=== PATIENT | male | born 1970 | race Hispanic/Latino ===

== ENCOUNTER 2020-05-29 00:42 | Outpatient (CLI) | payer OTHER, SELFPAY ==
[2020-05-29 18:05] LABS: SARS-CoV-2 RNA PCR Negative
== END 2020-05-29 00:43 | disposition home or self-care (01) ==
LOC: ANHCOVIDDT 00:42
PROVIDERS: PCP Family Medicine; Visit Provider Internal Medicine Gastroenterology
DX: Z01.812 Encounter for preprocedural laboratory examination (principal); Z20.828 Contact with and (suspected) exposure to other viral communicable diseases
CPT/HCPCS: 87635; C9803; U0003

== ENCOUNTER 2020-06-01 00:31 | Day surgery (SDC) | payer OTHER, SELFPAY ==
[2020-05-26 11:14] VITALS: BMI 35.2
[2020-06-01] MEDS: LACTATED RINGERS 1,000 ML 150 ML IV CONT (08:06)
[2020-06-01 08:07] VITALS: BP 120/69; PULSE 77; RESP 12; TEMP 36.5; O2SAT 98; BMI 33.4
--- NOTE | 2020-06-01 08:46 | WPDANESEPPF ---
Anes - Initial Pre Proc Eval Procedure: Operation Date: 06/01/20 09:15 Proposed Procedures p Screening Colonoscopy - Zay Salas MD Date/Time: 06/01/20 08:46 Surgeon: Zay Salas MD Pre Op Diagnosis: neoplasm screening Patient Data Age: 49 Gender: M Height: 5 ft 5 in Weight: 91.2 kg Last Vital Signs Temp 97.7 F 06/01/20 08:07 Pulse 77 06/01/20 08:07 Resp 12 06/01/20 08:07 BP 120/69 06/01/20 08:07 Pulse Ox 98 06/01/20 08:07 Allergies Allergy/AdvReac Type Severity Reaction Status Date / Time No Known Allergies Allergy Verified 06/01/20 08:06 Home Medications Medication Instructions Recorded Confirmed Type amlodipine 2.5 mg tablet 2.5 mg PO DAILY #30 tablet 04/14/20 05/26/20 Rx diclofenac sodium 50 mg 50 mg PO BID #60 tablet 04/14/20 05/26/20 Rx tablet,delayed release peg 3350-electrolytes 236 240 ml PO Q15M #4000 ml 05/31/20 Rx gram-22.74 gram-6.74 gram-5.86 gram solution Patient hx anesthesia problems: none Family hx anesthesia problems: none PMFSH Past Medical History Medical History (Updated 04/30/20 @ 09:56 by Ximena Dumont PA-C) SMILEY (nonalcoholic steatohepatitis) Rheumatoid arthritis involving multiple sites with positive rheumatoid factor Rheumatoid factor positive Family History Family History (Updated 07/15/19 @ 09:05 by Sepideh Hyde [facility]) Father Heart disease Social History Social History (Updated 04/28/20 @ 16:11 by Brandi Lawson) Smoking packs per day: 1.5 Smoking cigarettes per day: 30.0 Years smoked: 2 Smoking pack-years: 3.00 Smoking status: Former smoker Tobacco type: cigarettes Alcohol intake: current Drinks per week: 2 Substance use: never Substance use type: does not use Gender identity (if verbalized by the patient): Male Spiritual care concerns: No Anes - Eval Final PreProcedure Day of Procedure 06/01/20 08:46 Patient weight: overweight Heart: regular rate and rhythm Lungs: clear to auscultation Airway: Mallampati scale class II Neurological: alert and oriented Last oral intake: >/= 8 hours ASA classification: II Emergent: no Anesthetic plan: proceed Anesthesia type and monitoring: general GIVS and standard monitoring Informed Consent: The patient's anesthetic plan and its attendant risks and benefits were discussed with the patient/family/POA. Questions were solicited and answers provided to the satisfaction of the patient/family/POA.
--- NOTE | 2020-06-01 09:06 | PM.HPGS ---
History of Present Illness History of Present Illness Consent: Risks, benefits, and alternatives have been discussed and questions answered. Patient agrees to proceed with procedure. Chief complaint: neoplasm screening Narrative: Palmer Garcia is a 49 year old male here for first screening colonoscopy Review of Systems Constitutional: Constitutional: Denies headache(s) and Denies weakness Eyes: Eyes: Denies blurry vision ENT: Reports Normal hearing present, Denies headache(s) and Denies neck pain Cardiovascular: Cardiovascular: Denies chest pain and Denies dyspnea Respiratory: Respiratory: Denies dyspnea Gastrointestinal: Gastrointestinal: Reports no additional gastrointestinal complaints Genitourinary: Genitourinary: Denies dysuria Musculoskeletal: Musculoskeletal: Denies neck pain Integumentary/Breasts: Skin/Breast: Denies dry skin Neurologic: Reports Normal hearing present, Denies headache(s) and Denies weakness Psychiatric: Psychiatric: Denies anxiety Endocrine: Endocrine: Denies change in body appearance Hematologic/Lymphatic: Hematologic/Lymphatic: Denies easy bleeding Allergic/Immunologic: Allergic/Immunologic: Denies urticaria [facility] Past Medical History Medical History (Updated 04/30/20 @ 09:56 by Ximena Dumont PA-C) SMILEY (nonalcoholic steatohepatitis) Rheumatoid arthritis involving multiple sites with positive rheumatoid factor Rheumatoid factor positive Family History Family History (Updated 07/15/19 @ 09:05 by Sepideh Hyde [facility]) Father Heart disease Social History Social History (Updated 04/28/20 @ 16:11 by Brandi Lawson) Smoking packs per day: 1.5 Smoking cigarettes per day: 30.0 Years smoked: 2 Smoking pack-years: 3.00 Smoking status: Former smoker Tobacco type: cigarettes Alcohol intake: current Drinks per week: 2 Substance use: never Substance use type: does not use Gender identity (if verbalized by the patient): Male Spiritual care concerns: No Meds Home Medications and Allergies Home Medications Medication Instructions Recorded Confirmed Type amlodipine 2.5 mg tablet 2.5 mg PO DAILY #30 tablet 04/14/20 05/26/20 Rx diclofenac sodium 50 mg 50 mg PO BID #60 tablet 04/14/20 05/26/20 Rx tablet,delayed release peg 3350-electrolytes 236 240 ml PO Q15M #4000 ml 05/31/20 Rx gram-22.74 gram-6.74 gram-5.86 gram solution Allergies Allergy/AdvReac Type Severity Reaction Status Date / Time No Known Allergies Allergy Verified 06/01/20 08:06 Vital Signs Vital Signs - 24 hr 06/01/20 08:07 Temperature 97.7 F Pulse Rate 77 Respiratory Rate 12 Blood Pressure 120/69 Pulse Oximetry 98 Exam Const: General: comfortable and no acute distress HENMT: General nose exam: Normal nares present Eyes: General: appearance normal, both eyes and all related structures Neck: Neck: no JVD Resp: Auscultation: clear to auscultation bilaterally Cardio: Rate: regular rate Rhythm: regular rhythm GI: Inspection: non-distended GI Palp: Yes Soft to palpation Skin: General skin exam: normal color Neuro: General: gait normal Speech: normal speech Extrem: General: normal to inspection Psych: Mental Status: mental status grossly normal Assessment and Plan Assessment and plan (1) Screening for colon cancer: Code(s): Z12.11 - Encounter for screening for malignant neoplasm of colon Status: Acute Assessment and Plan: will proceed with colonoscopy
[2020-06-01 09:26] VITALS: BP 86/62; PULSE 66; RESP 19; O2SAT 98
[2020-06-01 09:36] VITALS: BP 112/71; PULSE 61; RESP 17; O2SAT 99
[2020-06-01 09:46] VITALS: BP 116/69; PULSE 64; RESP 19; O2SAT 99
== END 2020-06-01 09:58 | disposition home or self-care (01) ==
PROVIDERS: PCP Family Medicine; Visit Provider Internal Medicine Gastroenterology
PROC: 0DJD8ZZ Inspection of Lower Intestinal Tract, Via Natural or Artificial Opening Endoscopic (ICD-10-PCS; CPT 45378; principal; 2020-06-01 09:15)
DX: Z12.11 Encounter for screening for malignant neoplasm of colon (principal); K76.0 Fatty (change of) liver, not elsewhere classified; M06.9 Rheumatoid arthritis, unspecified; Z87.891 Personal history of nicotine dependence
CPT/HCPCS: 45378; J2704; J7120

== ENCOUNTER 2020-06-14 16:14 | Outpatient (NON) | payer OTHER, SELFPAY ==
[2020-06-14 18:42] LABS: Crystals Synovial Fluid None Seen (None Seen)
[2020-06-14 19:24] LABS: Appearance Synovial Fluid Hazy (Clear); Color Synovial Fluid Yellow (Colorless); Source Synovial Fluid Synovial fluid
[2020-06-14 19:25] LABS: Lymphocytes Synovial Fluid 73 %; Macrophages Synovial Fluid 7 %; Monocytes Synovial Fluid 20 %; Nucleated Cell Synovial Fluid 124 /uL (0-200); RBC Synovial Fluid 2082 /uL (0-0)
== END 2020-06-14 16:15 ==
PROVIDERS: PCP Family Medicine; Visit Provider Orthopaedic Surgery
DX: M25.461 Effusion, right knee (principal)
CPT/HCPCS: 36415; 82945; 84157; 86430; 86431; 87205; 88108; 89051; 89060

== ENCOUNTER 2021-07-21 14:37 | Emergency (ER) | payer OTHER, SELFPAY ==
--- NOTE | ~2021-07-21 | XR_ITS ---
EXAMINATION: XR chest 1V portable DATE: 07/21/2021 15:36 INDICATION: Cough and shortness of breath. TECHNIQUE: A single frontal view of the chest was obtained. COMPARISON: CT abdomen and pelvis 12/18/2018 FINDINGS: The chest demonstrates clear lungs without pneumonia, pleural effusion, or pneumothorax. Th e heart size is normal. IMPRESSION: 1. No acute cardiopulmonary disease. Reviewed, dictated and finalized at location A. R INCIDENT HANDLER
--- NOTE | 2021-07-21 14:39 | ECG_ITS ---
Measurements Intervals [place] Rate: 79 P: -3 NV: 136 QRS: 17 QRSD: 89 T: -2 QT: 358 QTc: 412 Interpretive Statements SINUS RHYTHM EARLY PRECORDIAL R/S TRANSITION VOLTAGE CRITERIA FOR LVH BORDERLINE ST-T WAVE ABNORMALITY- INFERIOR LEADS BORDERLINE ECG Electronically Signed On 07-21-2021 15:50:36 PORTABLE FEED MILL OPERATOR by Barrie Teixeira D.O.
[2021-07-21 14:40] VITALS: BP 157/93; PULSE 86; RESP 22; TEMP 36.1; O2SAT 99
[2021-07-21 14:58] LABS: Basophils Percent Auto 0.6 % (0.2-1.2); Eosinophils Absolute Auto 0.2 K/mm3 (0-0.3); Eosinophils Percent Auto 3.7 % (0-4.4); Hematocrit 44.7 % (42.0-52.0); Hemoglobin 14.9 g/dL (14.0-18.0); Immature Granulocyte Absolute 0.01 K/mm3 (0.00-0.031); Immature Granulocyte Percent A 0.2 % (0-0.5); Lymphocytes Absolute Auto 1.25 K/mm3 (0.9-3.2); Lymphocytes Percent Auto 24.4 % (18.3-44.2); Mean Corpuscular HGB Conc 33.3 g/dl (32-36); Mean Corpuscular Volume 89.9 fl (80-100); Mean Platelet Volume 11.4 fl (7.4-10.4); Monocytes Absolute Auto 0.9 K/mm3 (0.1-0.6); Monocytes Percent Auto 16.8 % (2.6-8.5); Neutrophils Absolute Auto 2.8 K/mm3 (1.3-6.7); Neutrophils Percent Auto 54.3 % (45.5-73.1); Platelet Count Result 146 k/mm3 (150-375); Red Blood Count 4.97 M/mm3 (4.6-6.20); Red Cell Distribution Width 13.2 % (11.5-14.5); White Blood Count 5.1 K/mm3 (4.5-10.0)
[2021-07-21 15:09] LABS: Alanine Aminotransferase 48 U/L (4-50); Albumin Level 4.5 g/dL (3.5-5.1); Alkaline Phosphatase 101 U/L (38-126); Anion Gap 5 mmol/L (8-16); Aspartate Amino Transferase 40 U/L (17-59); Bilirubin,Total 0.8 mg/dL (0.2-1.3); Blood Urea Nitrogen 12 mg/dL (9-20); Calcium 8.9 mg/dL (8.4-10.2); Carbon Dioxide 28 mmol/L (22-30); Chloride 102 mmol/L (98-107); Estimated CRCL calculation 116 ml/min; Estimated Glomerular Filt Rate > 60; Glucose 101 mg/dL (65-110); Potassium 3.7 mmol/L (3.4-5.0); Sodium 135 mmol/L (137-145)
[2021-07-21 16:25] VITALS: BP 135/96; PULSE 84; RESP 22; O2SAT 99
--- NOTE | 2021-07-21 16:28 | PC.NURSE ---
Patient reports onset of productive cough for 2 days. Patient reports son whom became sick last week and was diagnosed with influenza A 1 day prior. Patient reports pain across upper abdomen during cough. patient reports pain as sharp.
--- NOTE | 2021-07-21 16:52 | ED.GENADULT ---
HPI - General Adult General Chief complaint: Shortness of Breath/Dyspnea <Kalli Charles PA-C - Last Filed: 07/21/21 20:43> Stated complaint: cough <Kalli Charles PA-C - Last Filed: 07/21/21 20:43> Time Seen by Provider: 07/21/21 16:25 <Kalli Charles PA-C - Last Filed: 07/21/21 20:43> Source: patient <Kalli Charles PA-C - Last Filed: 07/21/21 20:43> Mode of arrival: ambulatory <VENICE Lemons Last Filed: 07/21/21 20:43> Limitations: no limitations <Kalli Charles PA-C - Last Filed: 07/21/21 20:43> History of Present Illness HPI narrative: Patient is a 50-year-old male presented with chief complaint of body aches, headache and painful cough that began on Sunday. Patient states he was tested for Covid yesterday and has not yet received his findings. Patient reports that he came to the ER to be evaluated as his job was being difficult regarding him needing to be off. Patient denies shortness of breath or chest pain. Patient reports that he has received his Covid vaccinations. <Kalli Charles PA-C - Last Filed: 07/21/21 20:43> Related Data Allergies/adverse reactions: Allergies Allergy/AdvReac Type Severity Reaction Status Date / Time No Known Allergies Allergy Verified 07/07/20 13:10 <Kalli Charles PA-C - Last Filed: 07/21/21 20:43> Review of Systems Review of Systems: CONSTITUTIONAL: Reports intermittent fever and body aches denies chills, or sweats. EYES: Denies visual changes, redness, or discharge. ENT: Denies rhinorrhea, congestion, sore throat, or otalgia. CARDIOVASCULAR: Denies chest pain, palpitations, or edema. RESPIRATORY: Reports cough denies dyspnea. GASTROINTESTINAL: Denies abdominal pain, nausea, vomiting, or diarrhea. GENITOURINARY: Denies dysuria or hematuria. SKIN: Denies rash or itching. MUSCULOSKELETAL: Denies back pain, joint pain, or myalgia. NEUROLOGIC: Denies headache, numbness, dizziness, or weakness. PSYCHIATRIC: Denies anxiety or depression. <Kalli Charles PA-C - Last Filed: 07/21/21 20:43> PMFSH Past Medical History Medical History: Medical History (Updated 07/21/21 @ 17:34 by Kalli Charles PA-C) Anxiety Depression Hallux rigidus of left foot Memory loss SMILEY (nonalcoholic steatohepatitis) Rheumatoid arthritis involving multiple sites with positive rheumatoid factor Rheumatoid factor positive Sleep disorder Vision abnormalities <Kalli Charles PA-C - Last Filed: 07/21/21 20:43> Family History Family History: Family History Father Heart disease Other Diabetes mellitus Hypertension <Kalli Charles PA-C - Last Filed: 07/21/21 20:43> Social History Social History: Social History Smoking status: Never smoker Alcohol intake: current Drinks per week: 2 Substance use: never Substance use type: does not use Gender identity (if verbalized by the patient): Male Spiritual care concerns: No <Kalli Charles PA-C - Last Filed: 07/21/21 20:43> Exam Narrative: GENERAL: Well-appearing, well-nourished, and in no acute distress. HEAD: Normocephalic, atraumatic. EYES: PERRLA and EOMI. ENT: Nares clear, no rhinorrhea or epistaxis. Mucous membranes moist. Bilateral TMs pearly marinelli nonbulging NECK: Supple. No adenopathy or masses. No carotid bruits or JVD CHEST: Clear to auscultation. No respiratory distress. No wheezes rales or rhonchi. Patient not tachypneic. Patient not tachycardic or hypoxic. Satting 99% on room air. HEART: Regular rate and rhythm. No murmur heard. Normal peripheral pulses. EXTREMITIES: Normal range of motion. No edema. SKIN: Warm, dry, no rash. NEURO: No focal deficits. Alert and oriented x3. PSYCH: Normal mood and affect. <Kalli Charles PA-C - Last Filed: 07/21/21 20:43> Course Vital Signs Vital signs: Vital Signs Temperature 97 F
[2021-07-21 17:21] LABS: Add Urine Microscopic? YES; Appearance Urine Cloudy (Clear); Bilirubin Urine Negative (Negative); Blood Urine 1+ (Negative); Color Urine Yellow (Yellow); Glucose Urine UA Negative (Negative); Ketones Urine Negative (Negative); Leukocyte Esterase Ur Negative LEU/UL (Negative); Mucus Urine Few /lpf; Nitrate Urine Negative (Negative); Protein Urine Negative (Negative); Specific Grav Ur 1.019 (1.001-1.035); Urobilinogen Urine Negative mg/dL (<2.0); WBC Urine 0-3 /hpf
[2021-07-21 18:05] VITALS: BP 136/80; PULSE 62; RESP 18; TEMP 36.7; O2SAT 98
--- NOTE | 2021-07-21 18:06 | PC.NURSE ---
Patient discharged and ambulated out without the need for assistance. patient instructed to rest, hydrate, and follow medications as prescribed. utilize splinting to reduce pain with cough. patient instructed to not return to work until 24 hours of no fever without the use of medications. Patient instructed to return to the ED for worsening of condition or onset of new worrisome symptom.
== END 2021-07-21 18:07 | disposition home or self-care (01) ==
PROVIDERS: Emergency Medicine; Emergency Provider General Practice; PCP Physician Assistant
DX: J10.1 Influenza due to other identified influenza virus with other respiratory manifestations (principal); Z20.822 Contact with and (suspected) exposure to COVID-19; K75.81 Nonalcoholic steatohepatitis (NASH); M05.9 Rheumatoid arthritis with rheumatoid factor, unspecified; M05.89 Other rheumatoid arthritis with rheumatoid factor of multiple sites; G47.9 Sleep disorder, unspecified; R94.31 Abnormal electrocardiogram [ECG] [EKG]
CPT/HCPCS: 36415; 71045; 80053; 81001; 85025; 87804; 93005; 99283

== ENCOUNTER → 2021-10-01 08:51 | Outpatient (CLI) | payer OTHER, SELFPAY ==
--- NOTE | ~2021-10-01 | XR_ITS ---
EXAMINATION: XR sacroiliac joints min 3V INDICATION: Polyarthralgia TECHNIQUE: Three views of the sacroiliac joints are obtained. COMPARISON: 02/17/2019 FINDINGS: There is no abnormal erosion or sclerosis of the sacroiliac joints. Bone alignment is eladio l. There is no fracture. Moderate osteoarthritis is noted in the visualized lower lumbar spine. IMPRESSION: 1. No acute osseous abnormality. Reviewed, dictated and finalized at location F. POCKET MACHINE OPERATOR
--- NOTE | ~2021-10-01 | XR_ITS ---
EXAMINATION: XR knee RT 3V DATE: 10/01/2021 12:41 INDICATION: Polyarthralgia TECHNIQUE: Three views of the right knee were obtained. COMPARISON: 06/14/2020 FINDINGS: Alignment is normal. No fracture or osteochondral lesion. There is moderate joint space hector rowing of the medial compartment, worsened since the comparison examination. There is mild narrowing of the lateral patellofemoral compartment. No joint effusion/synovitis. Soft tissues are unremarkabl e. IMPRESSION: 1. Osteoarthritis with interval worsening in the lateral patellofemoral compartment and medial compar tment since the prior examination. Reviewed, dictated and finalized at location F. R CLERK IMPRESSION: 1. Osteoarthritis with interval worsening in the lateral patellofemoral compart ment and medial compartment since the prior examination.
--- NOTE | ~2021-10-01 | XR_ITS ---
EXAMINATION: XR knee LT 3V DATE: 10/01/2021 12:41 INDICATION: Polyarthralgia TECHNIQUE: Three views of the left knee were obtained. COMPARISON: 06/14/2020 FINDINGS: Alignment is normal. No fracture or osteochondral lesion. There is mild tricompartmental os teoarthritis characterized by tiny marginal osteophytes. No joint effusion/synovitis. Soft tissues a re unremarkable. IMPRESSION: 1. No acute osseous abnormality. Reviewed, dictated and finalized at location F. L COREMAKER
--- NOTE | ~2021-10-01 | XR_ITS ---
EXAMINATION: XR hand BI arthritis min 3V DATE: 10/01/2021 12:42 INDICATION: Polyarthralgia TECHNIQUE: Posteroanterior, lateral, and oblique views of the left and of the right hands as well as a ballcatchers view of both hands were obtained. COMPARISON: 02/17/2019 FINDINGS: There is no abnormal erosion or sclerosis. Bone alignment is normal. There is no fracture. There is mild osteoarthritis of multiple interphalangeal joints. The soft tissues are unremarkable. IMPRESSION: 1. Mild osteoarthritis. Reviewed, dictated and finalized at location F. NT SACK BREAKER IMPRESSION: 1. Mild osteoarthritis.
--- NOTE | ~2021-10-01 | XR_ITS ---
EXAMINATION: XR hip BI 2V w AP pelvis DATE: 10/01/2021 12:41 INDICATION: Polyarthralgia TECHNIQUE: AP view the pelvis and two views of each hip were obtained. COMPARISON: None. FINDINGS: Bone alignment is normal. There is no fracture. No abnormal sclerosis or erosion are identi fied. There is mild osteoarthritis of the hips. IMPRESSION: 1. Mild osteoarthritis of the hips. Reviewed, dictated and finalized at location F. IR TECH
== END ==
DX: M25.59 Pain in other specified joint (principal); M15.9 Polyosteoarthritis, unspecified
CPT/HCPCS: 72202; 73130; 73521; 73562

== ENCOUNTER 2022-01-01 03:59 | Emergency (ER) | payer OTHER, MEDICAID, SELFPAY ==
--- NOTE | ~2022-01-01 | XR_ITS ---
XR chest 2V DATE: 01/01/2022 04:33 INDICATION: Shortness of breath, sore throat TECHNIQUE: PA and lateral views COMPARISON: 07/21/2021 portable AP chest FINDINGS: Normal heart size. No hilar or mediastinal enlargement. No pulmonary infiltrate or consolid ation, pleural effusion or pulmonary vascular congestion or pneumothorax is detected. Included skeletal structures are unremarkable. IMPRESSION: No active cardiopulmonary disease Reviewed, dictated and finalized at location A.
--- NOTE | 2022-01-01 04:09 | ECG_ITS ---
Measurements Intervals [place] Rate: 63 P: 21 NC: 174 QRS: 14 QRSD: 100 T: 0 QT: 400 QTc: 412 Interpretive Statements SINUS RHYTHM LEFT VENTRICULAR HYPERTROPHY ST ELEVATION IN ANTEROLAT/HIGH LAT LEADS- PROBABLY REPOLARIZATION ABNORMALITY BORDERLINE ECG Electronically Signed On 01-01-2022 7:14:26 CDT by Barrie Teixeira D.O.
[2022-01-01 04:10] VITALS: BP 127/86; PULSE 64; RESP 12; TEMP 35.9; O2SAT 97
--- NOTE | 2022-01-01 04:10 | ED.GENADULT ---
HPI - General Adult General Chief complaint: Unspecified Stated complaint: anxiety? Time Seen by Provider: 01/01/22 04:09 Source: patient History of Present Illness HPI narrative: Patient presents with generally not feeling well. Patient reports symptoms started Sunday after work. 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 He had mild aches and pains sore throat so some shortness of breath. Monitor symptoms at home and symptoms got progressively worse so he came to the ER for further evaluation. Also reports some fevers denies cough does report congestion denies any known sick contacts. Denies any chest pain or abdominal pain. Does report some nausea but no vomiting or diarrhea. Related Data Allergies Allergy/AdvReac Type Severity Reaction Status Date / Time No Known Allergies Allergy Verified 07/07/20 13:10 Review of Systems Review of Systems: CONSTITUTIONAL: Reports subjective fevers EYES: Denies visual changes, redness, or discharge. ENT: Denies rhinorrhea, or otalgia. CARDIOVASCULAR: Denies chest pain, palpitations, or edema. RESPIRATORY: Denies cough. GASTROINTESTINAL: Denies abdominal pain, vomiting, or diarrhea. GENITOURINARY: Denies dysuria or hematuria. SKIN: Denies rash or itching. MUSCULOSKELETAL: Denies back pain, joint pain, or myalgia. NEUROLOGIC: Denies numbness, dizziness, or weakness. PSYCHIATRIC: Denies anxiety or depression. All systems reviewed & are unremarkable except as noted in HPI and below PMFSH Past Medical History Medical History Anxiety Depression Hallux rigidus of left foot Memory loss SMILEY (nonalcoholic steatohepatitis) Rheumatoid arthritis involving multiple sites with positive rheumatoid factor Rheumatoid factor positive Sleep disorder Vision abnormalities Family History Family History Father Heart disease Other Diabetes mellitus Hypertension Social History Social History Smoking status: Never smoker Alcohol intake: current Drinks per week: 2 Substance use: never Substance use type: does not use Gender identity (if verbalized by the patient): Male Spiritual care concerns: No Exam Narrative: GENERAL: Well-appearing, well-nourished, and in no acute distress. HEAD: Normocephalic, atraumatic. EYES: PERRLA and EOMI. ENT: Nares clear, no rhinorrhea or epistaxis. Mucous membranes moist. Mild injection in the posterior pharynx NECK: Supple. No masses. No JVD CHEST: Clear to auscultation. No respiratory distress. No wheezes rales or rhonchi HEART: Regular rate and rhythm. No murmur heard. Normal peripheral pulses. ABDOMEN: Soft, nontender, nondistended, normal active bowel sounds. EXTREMITIES: Normal range of motion. No edema. SKIN: Warm, dry, no rash. NEURO: No focal deficits. Alert and oriented x3. PSYCH: Normal mood and affect. Course Reevaluation(s) Reevaluation #1: Patient resting comfortably results and plan reviewed with patient. Patient to come with outpatient plan. Date: 01/01/22 Time: 05:19 Vital Signs Vital signs: Vital Signs Temperature 35.9 C L 01/01/22 04:10 Pulse Rate 64 01/01/22 04:10 Respiratory Rate 12 01/01/22 04:10 Blood Pressure 127/86 01/01/22 04:10 Pulse Oximetry 97 01/01/22 04:10 Oxygen Delivery Room Air 01/01/22 04:10 Temperature 35.9 C L 01/01/22 04:10 Pulse Rate 67 01/01/22 06:00 Respiratory Rate 17 01/01/22 06:00 Blood Pressure 121/86 01/01/22 06:00 Pulse Oximetry 96 01/01/22 06:00 Oxygen Delivery Room Air 01/01/22 04:10 Medical Decision Making [facility] Narrative Medical decision making narrative: H&P as above, vss, pt looks clinically well, exam with clear lungs, labs clinically unremarkable, img without acute pro
[2022-01-01 04:14] VITALS: PULSE 68
[2022-01-01 04:52] LABS: Basophils Percent Auto 0.6 % (0.2-1.2); Eosinophils Absolute Auto 0.2 K/mm3 (0-0.3); Eosinophils Percent Auto 3.5 % (0-4.4); Hematocrit 43.3 % (42.0-52.0); Immature Granulocyte Absolute 0.01 K/mm3 (0.00-0.031); Immature Granulocyte Percent A 0.2 % (0-0.5); Immature Platelet Fraction Pct 11.4 % (0.9-11.2); Lymphocytes Absolute Auto 1.39 K/mm3 (0.9-3.2); Lymphocytes Percent Auto 26.8 % (18.3-44.2); Mean Corpuscular HGB Conc 32.3 g/dl (32-36); Mean Corpuscular Hemoglobin 29.4 pg (26-34); Mean Platelet Volume 11.7 fl (7.4-10.4); Monocytes Absolute Auto 0.4 K/mm3 (0.1-0.6); Monocytes Percent Auto 7.7 % (2.6-8.5); Neutrophils Absolute Auto 3.2 K/mm3 (1.3-6.7); Neutrophils Percent Auto 61.2 % (45.5-73.1); Platelet Count Result 146 k/mm3 (150-375); Red Blood Count 4.76 M/mm3 (4.6-6.20); Red Cell Distribution Width 13.5 % (11.5-14.5); White Blood Count 5.2 K/mm3 (4.5-10.0)
[2022-01-01 05:09] LABS: Alanine Aminotransferase 35 U/L (6-50); Albumin Level 4.1 g/dL (3.5-5.1); Alkaline Phosphatase 94 U/L (38-126); Anion Gap 5 mmol/L (8-16); Aspartate Amino Transferase 31 U/L (17-59); Bilirubin,Total 1.1 mg/dL (0.2-1.3); Blood Urea Nitrogen 18 mg/dL (9-20); Calcium 8.3 mg/dL (8.4-10.2); Carbon Dioxide 27 mmol/L (22-30); Chloride 108 mmol/L (98-107); Estimated CRCL calculation 148 ml/min; Estimated Glomerular Filt Rate > 60; Glucose 127 mg/dL (65-110); Potassium 3.4 mmol/L (3.4-5.0); Sodium 140 mmol/L (137-145)
[2022-01-01 05:09] LABS: Influenza A QL RT-PCR Negative (Negative); Influenza B QL RT-PCR Negative (Negative); SARS-CoV-2 RNA PCR Negative
[2022-01-01 06:00] VITALS: BP 121/86; PULSE 67; RESP 17; O2SAT 96
== END 2022-01-01 06:03 | disposition home or self-care (01) ==
PROVIDERS: Emergency Provider Emergency Medicine; PCP Physician Assistant
DX: J02.9 Acute pharyngitis, unspecified (principal); R06.02 Shortness of breath; R51.9 Headache, unspecified; Z20.822 Contact with and (suspected) exposure to COVID-19
CPT/HCPCS: 36415; 71046; 80053; 85025; 85055; 87081; 87502; 87880; 93005; 99283; C9803; U0003; U0005

== ENCOUNTER → 2022-03-16 08:42 | Outpatient (CLI) | payer OTHER, SELFPAY ==
--- NOTE | ~2022-03-16 | XR_ITS ---
XR foot LT min 3V DATE: 03/16/2022 08:54 INDICATION: Left foot pain postoperatively TECHNIQUE: 3 views COMPARISON: 07/07/2020 [facility] foot [facility] FINDINGS: There are 2 U-shaped fixation devices at the dorsal and medial aspect of the head of the fi rst metatarsal bone. There is osteoarthritic change at the first metatarsophalangeal joint. No fracture, dislocation, periosteal reaction or bone destruction. IMPRESSION: Postoperative change of first metatarsal head Osteoarthritis at first metatarsophalangeal joint Reviewed, dictated and finalized at location B.
== END ==
PROVIDERS: PCP Physician Assistant; Visit Provider Physician Assistant
DX: M19.072 Primary osteoarthritis, left ankle and foot (principal)
CPT/HCPCS: 73630

== ENCOUNTER 2022-12-03 12:46 | Emergency (ER) | payer MEDICAID, SELFPAY ==
[2022-12-03 12:49] VITALS: BP 148/85; PULSE 79; RESP 18; TEMP 36.8; O2SAT 100
--- NOTE | 2022-12-03 12:59 | ED.GENADULT ---
HPI - General Adult General Chief complaint: Extremity Injury, Lower Stated complaint: Septic pain in leg Time Seen by Provider: 12/03/22 12:51 History of Present Illness HPI narrative: 52-year-old male presented to the emergency department for evaluation of right-sided sciatica. Patient states he has had this pain previously but states this is worse than previous. Patient denies any falls or injuries. Patient states that the pain did start at his right lower back right buttock and does radiate down his leg. Patient denies any associated numbness or weakness but patient states he does have intermittent pain that radiates down the leg. Patient reports the pain is worsened with range of motion. Patient denies any change in bowel or bladder habits. While the patient states the pain started yesterday he did not take any medications until just prior to arrival, patient took ibuprofen. Patient denies any fevers. Patient denies any history of back surgery. Patient states he does have follow-up with his primary care physician tomorrow. Patient reports that he was previously on methotrexate and hydroxychloroquine but is not currently taking his medications. Related Data Allergies Allergy/AdvReac Type Severity Reaction Status Date / Time No Known Allergies Allergy Verified 12/03/22 12:58 Review of Systems Review of Systems: All systems reviewed & are unremarkable except as noted in HPI and below PMFSH Past Medical History Medical History (Updated 12/03/22 @ 15:05 by River Wagner MD) Anxiety Depression Hallux rigidus of left foot Memory loss SMILEY (nonalcoholic steatohepatitis) Rheumatoid arthritis involving multiple sites with positive rheumatoid factor Rheumatoid factor positive Sleep disorder Vision abnormalities Surgical History Surgical History (Updated 03/23/22 @ 09:54 by Desiree Ashby) H/O foot surgery Left hallux cheilectomy 05/[address] Ray ([facility]) Family History Family History Father Heart disease Other Diabetes mellitus Hypertension Social History Social History Smoking status: Never smoker Alcohol intake: current Drinks per week: 2 Substance use: never Substance use type: does not use Living arrangements: with family Occupation/Education: occupation Gender identity (if verbalized by the patient): Male Spiritual care concerns: No Exam Narrative: APPEARANCE: Distress secondary to back pain HEAD: normocephalic, atraumatic. EYES: PERRLA/EOMI, conjunctivae clear. NECK: Supple. No adenopathy, no masses. RESPIRATORY: Airway patent, respirations nonlabored. Clear to auscultation bilaterally, no rales, rhonchi, wheezing. CARDIOVASCULAR: Regular rate and rhythm without murmurs rubs or gallops. ABDOMINAL: Soft, nontender, nondistended, normal bowel sounds MUSCULOSKELETAL: Moves all extremities. Positive straight leg test on right. Tenderness to right buttock NEURO: Alert. Cranial nerves II through XII intact. SKIN: Warm, dry. Normal Color Course Course Emergency Course: 48-year-old male presenting for evaluation of right leg pain. Patient symptoms are consistent with sciatica. Patient was started on Flexeril and treated with IV Toradol and IV Dilaudid. Patient was also started on dexamethasone and was started on a Medrol Dosepak for home. Patient states he does have close follow-up with his primary care physician tomorrow. Patient was educated on reasons to return to the emergency department. All questions concerns were addressed and patient was well-appearing at time of discharge. Vital Signs Vital signs: Vital Signs Temperature 98.2 F 12/03/22 12:49 Pulse Rate 79 12/03/22 12:49 Respiratory Rate 18 12/03/22 12:49 Blood Pressure 148/85 H 12/03/22 12:49 Pulse Oximetry 100 12/03/22 12:49 Oxygen Delivery Room Air
[2022-12-03] MEDS: HYDROmorphone HCL INJ (*CRX) 1 MG/ML SYR 0.5 MG IV PUSH ×2 (13:06→15:12)
[2022-12-03] MEDS: KETOROLAC 15 MG/ML VIAL (*BKC) IV PUSH (13:07)
[2022-12-03] MEDS: CYCLOBENZAPRINE HCL 10 MG TABLET PO (13:11)
[2022-12-03 13:13] VITALS: BP 133/74; PULSE 71; RESP 18; O2SAT 96
[2022-12-03 14:18] VITALS: BP 117/82; PULSE 60; RESP 18; O2SAT 95
[2022-12-03] MEDS: HYDROcodone/acetaminophen (*CRX) 5-325 MG TABLET 1 TAB PO (15:40)
[2022-12-03 15:47] VITALS: BP 122/60; PULSE 66; RESP 18; O2SAT 100
== END 2022-12-03 15:48 | disposition home or self-care (01) ==
PROVIDERS: Emergency Provider Emergency Medicine; PCP Physician Assistant
DX: M54.31 Sciatica, right side (principal); F41.9 Anxiety disorder, unspecified; F32.A Depression, unspecified; M06.9 Rheumatoid arthritis, unspecified; K75.81 Nonalcoholic steatohepatitis (NASH)
CPT/HCPCS: 96374; 96375; 96376; 99284; A9270; J1100; J1170; J1885

== ENCOUNTER 2022-12-20 23:05 | Emergency (ER) | payer MEDICAID, SELFPAY ==
[2022-12-20 23:07] VITALS: BP 135/87; PULSE 96; RESP 14; TEMP 36.4; O2SAT 98
[2022-12-21] MEDS: IBUPROFEN 400 MG TABLET 800 MG PO (00:28)
[2022-12-21] MEDS: ACETAMINOPHEN 500 MG TABLET 1000 MG PO (00:29)
[2022-12-21] MEDS: methocarbamoL 750 MG TABLET 1500 MG PO (00:29)
[2022-12-21] MEDS: LIDOCAINE 5% PATCH 1 PATCH TRANSDERM (00:30)
--- NOTE | 2022-12-21 00:31 | ED.GENADULT ---
HPI - General Adult General Chief complaint: Extremity Injury, Lower Stated complaint: Siatica R lower leg Time Seen by Provider: 12/21/22 00:15 History of Present Illness HPI narrative: This is a 52-year-old male with history of sciatica presenting with right leg pain. Patient's pain comes on his glute and is in the lateral side of his thigh with some associated numbness in his calf. He has been treated successfully for sciatica in the past. Patient typically has pain but had some numbness in the calf today. He texted his PCP who recommended he come to the hospital. Patient has no weakness of the lower extremities, urinary retention, bowel incontinence or saddle anesthesia. No cancer trauma or IV drug abuse or fevers. Related Data Allergies Allergy/AdvReac Type Severity Reaction Status Date / Time No Known Allergies Allergy Verified 12/21/22 00:17 [facility] Past Medical History Medical History (Updated 12/21/22 @ 00:39 by Kermit Roblero MD) Anxiety Depression Hallux rigidus of left foot Memory loss SMILEY (nonalcoholic steatohepatitis) Rheumatoid arthritis involving multiple sites with positive rheumatoid factor Rheumatoid factor positive Sleep disorder Vision abnormalities Surgical History Surgical History (Updated 03/23/22 @ 09:54 by Desiree Ashby) H/O foot surgery Left hallux cheilectomy 05/[address] Ray ([facility]) Family History Family History Father Heart disease Other Diabetes mellitus Hypertension Social History Social History Smoking status: Never smoker Alcohol intake: current Drinks per week: 2 Substance use: never Substance use type: does not use Living arrangements: with family Occupation/Education: occupation Gender identity (if verbalized by the patient): Male Spiritual care concerns: No Exam Narrative: APPEARANCE: No apparent distress. Head: atraumatic. EYES: EOMI, NOSE: Atraumatic NECK: Trachea midline RESPIRATORY: No increased rate of breathing CARDIOVASCULAR: RRR, ABDOMINAL: Non-distended MUSCULOSKELETAl: Focal exam lower extremities revealed no skin changes. No tenderness to palpation. Straight leg negative bilaterally. Patient able ambulate without difficulty. Normal neurologic exam. Palpable pulses. NEURO: Alert. Moving 4/4 extremities SKIN:: Warm, dry. Normal color PSYCHIATRIC: Normal affect Course Vital Signs Vital signs: Vital Signs Temperature 97.6 F 12/20/22 23:07 Pulse Rate 96 12/20/22 23:07 Respiratory Rate 14 12/20/22 23:07 Blood Pressure 135/87 12/20/22 23:07 Pulse Oximetry 98 12/20/22 23:07 Oxygen Delivery Room Air 12/20/22 23:07 Temperature 97.6 F 12/20/22 23:07 Pulse Rate 96 12/20/22 23:07 Respiratory Rate 14 12/20/22 23:07 Blood Pressure 135/87 12/20/22 23:07 Pulse Oximetry 98 12/20/22 23:07 Oxygen Delivery Room Air 12/20/22 23:07 Medical Decision Making MDM Narrative Medical decision making narrative: -Presentation: 52-year-old male presenting with pain going down his leg. 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 No concerning findings on exam. Patient discharged with primary care follow-up -RX Motrin Tylenol Robaxin Vital Signs V
[2022-12-21 00:59] VITALS: BP 132/98; PULSE 74; RESP 18; O2SAT 98
== END 2022-12-21 01:01 | disposition home or self-care (01) ==
PROVIDERS: Emergency Provider Emergency Medicine; PCP Physician Assistant
DX: M54.30 Sciatica, unspecified side (principal)
CPT/HCPCS: 96372; 99283; A9270; J1100

== ENCOUNTER → 2023-02-08 14:35 | Outpatient (CLI) | payer MEDICAID, SELFPAY ==
--- NOTE | ~2023-02-08 | CT_ITS ---
EXAMINATION: CT lumbar spine wo con DATE: 02/08/2023 14:51 INDICATION: Lumbago. TECHNIQUE: Computed tomography (CT) of the lumbar spine was performed without intravenous contrast. A utomated exposure control and iterative reconstruction technique were employed. The dose-length produ ct was 726.48 mGy-cm. COMPARISON: None FINDINGS: Bone alignment is normal. Vertebral body heights are normal. There is mildly decreased disc height at L3-L4 and L4-L5 and severely decreased disc height at L5-S1. The following disc levels are specifically discussed: L1-L2: The disc does not extend beyond the endplate margin. There is mild bilateral facet joint osteo arthritis. There is no neural foraminal stenosis. There is no central canal stenosis. L2-L3: The disc is bulging. There is mild bilateral facet joint osteoarthritis. There is mild bilater al neural foraminal stenosis. There is mild central canal stenosis. L3-L4: The disc is bulging. There is mild bilateral facet joint osteoarthritis. There is mild bilater al neural foraminal stenosis. There is mild central canal stenosis. L4-L5: The disc is bulging. There is mild bilateral facet joint osteoarthritis. There is mild bilater al neural foraminal stenosis. There is mild central canal stenosis. L5-S1: The disc is bulging. There is mild bilateral facet joint osteoarthritis. There is mild bilater al neural foraminal stenosis. There is mild central canal stenosis. IMPRESSION: 1. Severe lower lumbar spondylosis. Reviewed, dictated and finalized at location A.
== END ==
PROVIDERS: PCP Physician Assistant; Visit Provider Physician Assistant
DX: M54.41 Lumbago with sciatica, right side (principal); M47.816 Spondylosis without myelopathy or radiculopathy, lumbar region
CPT/HCPCS: 72131

== ENCOUNTER 2023-02-14 08:00 | Outpatient (RCR) | payer MEDICAID, SELFPAY ==
--- NOTE | 2023-01-18 11:00 | PTOPEVAL1 ---
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; is doing all his work and home tasks, but more pain in R leg and back, pain is not constant and varies; went to ER due to pain in his back; previously did, but not done for past 2 months: exercises every day: sitting knee extension, standing calf raise, hip abduction; weight machine for hips; ecliptical machine, walking about 1 mile on treadmill and hold on; water exercises 20 min; with exercises, sometimes dizzy Reported Pain Level Pain Score Self Report Additional Pain Score Comments back pain range in the past week 3-01/13, numb and pinch into R lateral leg to mid calf increase pain: walk uneven ground; decrease pain: sit and rest, have not been going to the fitness center due to leg pain; Assessment PT Clinical Summary Palmer has the diagnosis of low back pain, sciatica into R LE to mid calf. He reports chronic issues with back pain and arthritis, gradually worse without injury to his back. He is currently active and working, with more pain. Stated he feels unsteady with walking and more pain with walking on uneven ground. With the evaluation: he has flat lumbar spine in standing; tightness over R and L hamstrings and anterior hip/quads; pain is increased with supine : R and L hip flexion,IR and ER motions, hamstring stretch, and prone on elbows stretch, knee flexion stretch and hip flexion motion; poor walking posture with lateral trunk and hip motion, not in a straight path and small base of support. Skilled PT services are indicated for modalities to decrease pain; therapeutic exercises to stretch and strengthen trunk and hips and education for home exercises and posture correction. Plan of Care Interventions Jose
--- NOTE | 2023-02-14 08:37 | PTOPDC ---
Assessment and note entered by Denita Mccollum, PT Evaluation Information Assessment Status Discharge Diagnosis lumbago, sciatica R Onset 2 years ago Subjective Information Palmer reports: back is better, still have some pain after walking 30 minutes; numb on R front of leg all the time; Reported Pain Level Pain Score Self Report Additional Pain Score Comments pain range in the past week of 2-4/10; numb R anterior thigh- all the time; increase pain: after walking 30 min and with lifting something too heavy, walk uneven surface decrease pain is not taking any meds for back pain Assessment PT Clinical Summary Palmer has received 9 PT sessions. Compared to the initial evaluation: pain has improved from 3-6/10 to 2-4/10, with radicular pain into R anterior thigh that is constant; flexibility of L hamstring is the same, and improved with R hamstring and R and L anterior hip -quad; increased trunk and hip strength and stability with single leg standing tolerance, 2 minute walk test distance increased 120' and gait path is straight without lateral trunk motion; education completed for HEP and body mechanics. The goals were partially met. He is to continue with his HEP and return to the fitness center. Discharge PT services. Plan of Care PT Services Indicated No
== END 2023-02-16 11:05 | disposition home or self-care (01) ==
LOC: ANHPT 08:00
PROVIDERS: PCP Physician Assistant; Visit Provider Physician Assistant
DX: M54.41 Lumbago with sciatica, right side (principal)
CPT/HCPCS: 97110; 97140; 97161; 97530; 99199